=== PATIENT | female | born 1950 | race Caucasian/White ===

== ENCOUNTER 2023-02-10 09:53 | Inpatient (IN) | payer MEDICARE ==
[~2023-02-10] VITALS: Ht 172.7 cm; Wt 62.1 kg
[2023-02-10 10:07] VITALS: BP 100/56
[2023-02-10 11:02] LABS: BASO % 0.1 % (0.0-1.0); EOS # 0.1 10*3/uL (0.0-0.4); EOS % 0.4 % (1.0-4.0); HEMATOCRIT 31.8 % (37.0-47.0); LYMPH # 0.8 10*3/uL (1.3-4.4); LYMPH % 5.5 % (27.0-41.0); MEAN CELL VOLUME 81.3 fl (81.0-99.0); MEAN CORPUSCULAR HGB CONC 29.6 g/dl (33.0-37.0); MEAN PLATELET VOLUME 8.7 fl (9.6-12.3); MONO # 0.8 10*3/uL (0.1-1.0); MONO % 5.1 % (3.0-9.0); NEUT # 13.6 10*3/uL (2.3-7.9); NEUT % 88.2 % (47.0-73.0); PLATELET COUNT AUTOMATED 357 10*3/uL (130-400); RED BLOOD COUNT 3.91 10*6/uL (4.10-5.10); RED CELL DISTRI WIDTH 17.6 % (0-14.5); WHITE BLOOD COUNT 15.4 10*3/uL (4.8-10.8)
[2023-02-10] MEDS ORDERED: VENLAFAXINE PO (11:05)
[2023-02-10] MEDS ORDERED: ZINC50 M4 PO (11:05)
[2023-02-10] MEDS ORDERED: NAC600 M1 PO (11:07)
[2023-02-10] MEDS ORDERED: [UNRECOGNIZED DRUG - OTHER] INH (11:09)
[2023-02-10 11:11] VITALS: BP 105/55
[2023-02-10] MEDS ORDERED: ELIQUIS5 M1 PO (11:11)
[2023-02-10] MEDS ORDERED: MUCINEX ER600 MG PO (11:13)
[2023-02-10] MEDS ORDERED: IPRATROPIU0.2 MG/1 M INH (11:16)
[2023-02-10] MEDS ORDERED: Ipratropium Brom3 ML INH (11:17)
[2023-02-10 11:20] LABS: ALKALINE PHOSPHATASE 48 U/L (46-116); BUN 21 mg/dl (9-23); CHLORIDE 105 mmol/L (98-107); LIPASE 30 U/L (12-53); POTASSIUM 3.7 mmol/L (3.4-5.1); SGPT/ALT 29 U/L (5-49); TOTAL PROTEIN 5.8 gm/dL (6.0-8.0)
[2023-02-10] MEDS ORDERED: XANAX0.25 MG PO (11:20)
[2023-02-10] MEDS ORDERED: FUROSEMIDE40 MG PO (11:25)
[2023-02-10] MEDS ORDERED: ONDANSETRON HYDR4 MG PO (11:26)
[2023-02-10] MEDS ORDERED: POTASSIUM CHLO10 ME4 PO (11:29)
[2023-02-10] MEDS ORDERED: PREDNISONE20 M1 PO (11:30)
[2023-02-10] MEDS ORDERED: PROVENTIL HFA6.7 GM INH (11:35)
[2023-02-10] MEDS ORDERED: DULCOLAX STOOL100 M1 PO (11:36)
[2023-02-10 12:58] VITALS: BP 110/43
[2023-02-10] MEDS ORDERED: DILTIAZEM 24HR120 M1 PO (13:23)
[2023-02-10] MEDS ORDERED: PANTOPRAZOLE SO40 MG PO (13:24)
[2023-02-10] MEDS ORDERED: PREDNISONE10 MG PO (13:27)
[2023-02-10] MEDS ORDERED: DAILY VITAMIN1 EAC3 PO (13:28)
[2023-02-10 17:25] VITALS: BP 126/56
[2023-02-10 19:02] VITALS: BP 113/43
[2023-02-10 22:00] VITALS: BP 153/77
[2023-02-11 06:17] LABS: HEMATOCRIT 28.8 % (37.0-47.0); LYMPH # 0.6 10*3/uL (1.3-4.4); LYMPH % 8.8 % (27.0-41.0); MEAN CELL VOLUME 80.7 fl (81.0-99.0); MEAN CORPUSCULAR HGB 24.1 pg (27.0-31.0); MEAN CORPUSCULAR HGB CONC 29.9 g/dl (33.0-37.0); MEAN PLATELET VOLUME 9.2 fl (9.6-12.3); MONO # 0.4 10*3/uL (0.1-1.0); MONO % 6.7 % (3.0-9.0); NEUT # 5.6 10*3/uL (2.3-7.9); PLATELET COUNT AUTOMATED 324 10*3/uL (130-400); RED BLOOD COUNT 3.57 10*6/uL (4.10-5.10); RED CELL DISTRI WIDTH 17.2 % (0-14.5); WHITE BLOOD COUNT 6.6 10*3/uL (4.8-10.8)
[2023-02-11 06:22] LABS: ALKALINE PHOSPHATASE 44 U/L (46-116); BUN 20 mg/dl (9-23); CHLORIDE 104 mmol/L (98-107); CHOLESTEROL 182 mg/dL (<200); FREE T4 1.08 ng/dl (0.89-1.76); LDL CHOLESTEROL 79 mg/dL (9-159); POTASSIUM 4.2 mmol/L (3.4-5.1); SGPT/ALT 31 U/L (5-49); TOTAL PROTEIN 5.7 gm/dL (6.0-8.0); TRIGLYCERIDES 65 mg/dl (<150)
[2023-02-11 08:00] VITALS: BP 158/73
[2023-02-11 08:53] LABS: VITAMIN D, 25-HYDROXY 45.4 ng/mL (30-100)
[2023-02-11 12:00] VITALS: BP 137/64
[2023-02-11 16:00] VITALS: BP 136/67
[2023-02-11 20:00] VITALS: BP 139/73
[2023-02-12] VITALS (7 sets, daily range): BP systolic 117–158; BP diastolic 60–92
[2023-02-12 06:51] LABS: BASO % 0.1 % (0.0-1.0); HEMATOCRIT 27.6 % (37.0-47.0); LYMPH # 0.7 10*3/uL (1.3-4.4); LYMPH % 7.5 % (27.0-41.0); MEAN CELL VOLUME 81.7 fl (81.0-99.0); MEAN CORPUSCULAR HGB 23.7 pg (27.0-31.0); MEAN PLATELET VOLUME 9.4 fl (9.6-12.3); MONO # 0.5 10*3/uL (0.1-1.0); MONO % 5.2 % (3.0-9.0); NEUT # 7.6 10*3/uL (2.3-7.9); NEUT % 86.6 % (47.0-73.0); PLATELET COUNT AUTOMATED 346 10*3/uL (130-400); RED BLOOD COUNT 3.38 10*6/uL (4.10-5.10); RED CELL DISTRI WIDTH 17.3 % (0-14.5); WHITE BLOOD COUNT 8.8 10*3/uL (4.8-10.8)
[2023-02-12 07:08] LABS: BUN 23 mg/dl (9-23); CHLORIDE 106 mmol/L (98-107); POTASSIUM 4.1 mmol/L (3.4-5.1)
[2023-02-13] VITALS: BP 152/74
[2023-02-13 06:59] LABS: HEMATOCRIT 28.9 % (37.0-47.0); LYMPH # 0.5 10*3/uL (1.3-4.4); MEAN CORPUSCULAR HGB 23.6 pg (27.0-31.0); MEAN CORPUSCULAR HGB CONC 28.4 g/dl (33.0-37.0); MEAN PLATELET VOLUME 9.2 fl (9.6-12.3); MONO # 0.3 10*3/uL (0.1-1.0); MONO % 3.9 % (3.0-9.0); NEUT # 7.7 10*3/uL (2.3-7.9); NEUT % 89.6 % (47.0-73.0); PLATELET COUNT AUTOMATED 334 10*3/uL (130-400); RED BLOOD COUNT 3.48 10*6/uL (4.10-5.10); RED CELL DISTRI WIDTH 17.3 % (0-14.5); WHITE BLOOD COUNT 8.6 10*3/uL (4.8-10.8)
[2023-02-13 07:08] LABS: CHLORIDE 105 mmol/L (98-107); POTASSIUM 3.9 mmol/L (3.4-5.1)
[2023-02-13 07:09] LABS: BUN 13 mg/dl (9-23)
[2023-02-13 08:00] VITALS: BP 139/68
[2023-02-13 12:00] VITALS: BP 149/77
[2023-02-13 15:35] VITALS: BP 132/77
[2023-02-13 20:00] VITALS: BP 122/76; BP 151/60
[2023-02-14] VITALS: BP 134/65
[2023-02-14 06:33] LABS: EOS # 0.1 10*3/uL (0.0-0.4); HEMATOCRIT 29.4 % (37.0-47.0); LYMPH # 1.1 10*3/uL (1.3-4.4); LYMPH % 13.7 % (27.0-41.0); MEAN CELL VOLUME 82.1 fl (81.0-99.0); MEAN CORPUSCULAR HGB 23.2 pg (27.0-31.0); MEAN CORPUSCULAR HGB CONC 28.2 g/dl (33.0-37.0); MEAN PLATELET VOLUME 9.2 fl (9.6-12.3); MONO # 0.7 10*3/uL (0.1-1.0); MONO % 8.1 % (3.0-9.0); NEUT # 6.3 10*3/uL (2.3-7.9); NEUT % 76.8 % (47.0-73.0); PLATELET COUNT AUTOMATED 312 10*3/uL (130-400); RED BLOOD COUNT 3.58 10*6/uL (4.10-5.10); RED CELL DISTRI WIDTH 17.2 % (0-14.5); WHITE BLOOD COUNT 8.2 10*3/uL (4.8-10.8)
[2023-02-14 08:00] VITALS: BP 124/70; BP 126/84
[2023-02-14 12:00] VITALS: BP 132/63
[2023-02-14 15:47] VITALS: BP 108/45
[2023-02-14 20:00] VITALS: BP 133/67
[2023-02-15] VITALS: BP 132/78; BP 178/84
[2023-02-15 07:06] LABS: BASO % 0.1 % (0.0-1.0); EOS # 0.1 10*3/uL (0.0-0.4); EOS % 0.6 % (1.0-4.0); HEMATOCRIT 26.6 % (37.0-47.0); LYMPH % 11.9 % (27.0-41.0); MEAN CELL VOLUME 82.1 fl (81.0-99.0); MEAN CORPUSCULAR HGB 23.5 pg (27.0-31.0); MEAN CORPUSCULAR HGB CONC 28.6 g/dl (33.0-37.0); MEAN PLATELET VOLUME 9.1 fl (9.6-12.3); MONO # 0.6 10*3/uL (0.1-1.0); NEUT # 6.8 10*3/uL (2.3-7.9); NEUT % 79.8 % (47.0-73.0); PLATELET COUNT AUTOMATED 291 10*3/uL (130-400); RED BLOOD COUNT 3.24 10*6/uL (4.10-5.10); WHITE BLOOD COUNT 8.5 10*3/uL (4.8-10.8)
[2023-02-15 08:00] VITALS: BP 125/78
[2023-02-15 11:23] VITALS: BP 124/65
[2023-02-15] MEDS ORDERED: DILTIAZEM 24HR180 MG PO (13:55)
[2023-02-15] MEDS ORDERED: ALPRAZOLAM0.5 M3 PO (13:55)
[2023-02-15] MEDS ORDERED: PREDNISONE10 MG PO (13:55)
[2023-02-15] MEDS ORDERED: DIGOX125 MCG PO (13:55)
[2023-02-15 15:28] VITALS: BP 123/42
== END 2023-02-15 19:20 | DRG 871 ==
LOC: ED 09:53 → EDHOLD 11:56 → 4E 11:56 → EDHOLD 12:45 → 4E 21:15
PROVIDERS: Emergency Medicine; Family Medicine; Internal Medicine; Student in an Organized Health Care Education/Training Program; ADMIT Student in an Organized Health Care Education/Training Program; ATTEND Student in an Organized Health Care Education/Training Program
PROC: XW033E5 Introduction of Remdesivir Anti-infective into Peripheral Vein, Percutaneous Approach, New Technology Group 5 (ICD-10-PCS; principal; 2023-02-11)
DX: A41.9 Sepsis, unspecified organism (principal); I21.A1 Myocardial infarction type 2; J12.82 Pneumonia due to coronavirus disease 2019; U07.1 COVID-19; J96.21 Acute and chronic respiratory failure with hypoxia; J96.22 Acute and chronic respiratory failure with hypercapnia; E44.0 Moderate protein-calorie malnutrition; C34.11 Malignant neoplasm of upper lobe, right bronchus or lung; I50.32 Chronic diastolic (congestive) heart failure; J44.0 Chronic obstructive pulmonary disease with (acute) lower respiratory infection; J44.1 Chronic obstructive pulmonary disease with (acute) exacerbation; R65.20 Severe sepsis without septic shock; D64.9 Anemia, unspecified; R73.9 Hyperglycemia, unspecified; F41.1 Generalized anxiety disorder; J20.9 Acute bronchitis, unspecified; F32.9 Major depressive disorder, single episode, unspecified; I48.91 Unspecified atrial fibrillation; Z79.51 Long term (current) use of inhaled steroids; Z79.899 Other long term (current) drug therapy; Z68.20 Body mass index [BMI] 20.0-20.9, adult

== ENCOUNTER 2023-03-15 08:25 | Inpatient (IN) | payer MEDICARE ==
[~2023-03-15] VITALS: Ht 172.7 cm; Wt 61.5 kg
[2023-03-15] VITALS (14 sets, daily range): BP systolic 96–163; BP diastolic 53–110
[~2023-03-15 08:25] MED LIST: ALPRAZOLAM0.5 M3 PO; DAILY VITAMIN1 EAC3 PO; DIGOX125 MCG PO; DIGOXIN125 MCG PO; DILTIAZEM 24HR120 M1 PO; DILTIAZEM 24HR180 MG PO; DILTIAZEM CD240 MG PO; DULCOLAX STOOL100 M1 PO; ELIQUIS5 M1 PO; FLECAINIDE ACE100 M1 PO; FUROSEMIDE40 MG PO; IPRATROPIU0.2 MG/1 M INH; Ipratropium Brom3 ML INH; MUCINEX ER600 MG PO; NAC600 M1 PO; ONDANSETRON HYDR4 MG PO; PANTOPRAZOLE SO40 MG PO; POTASSIUM CHLO10 ME4 PO; PREDNISONE10 MG PO; PREDNISONE20 M1 PO; PROVENTIL HFA6.7 GM INH; TORSEMIDE20 MG PO; VENLAFAXINE PO; XANAX0.25 MG PO; ZINC50 M4 PO; [UNRECOGNIZED DRUG - OTHER] INH
[2023-03-15 08:40] LABS: ABG BASE EXCESS 0.4 mmol/L (-2.0-2.0); ARTERIAL BLOOD GAS PH 7.394 (7.35-7.45)
[2023-03-15] MEDS ORDERED: SODIUM CHLORIDE 0.9% 1,000 ML IV SCH (08:55)
[2023-03-15 09:10] LABS: BASO % 0.2 % (0.0-1.0); EOS % 0.3 % (1.0-4.0); LYMPH # 0.5 10*3/uL (1.3-4.4); LYMPH % 5.7 % (27.0-41.0); MEAN CELL VOLUME 88.1 fl (81.0-99.0); MEAN CORPUSCULAR HGB 23.9 pg (27.0-31.0); MEAN CORPUSCULAR HGB CONC 27.1 g/dl (33.0-37.0); MEAN PLATELET VOLUME 9.3 fl (9.6-12.3); MONO # 0.6 10*3/uL (0.1-1.0); MONO % 6.7 % (3.0-9.0); NEUT # 8.1 10*3/uL (2.3-7.9); NEUT % 86.2 % (47.0-73.0); PLATELET COUNT AUTOMATED 392 10*3/uL (130-400); RED BLOOD COUNT 3.18 10*6/uL (4.10-5.10); RED CELL DISTRI WIDTH 18.8 % (0-14.5); WHITE BLOOD COUNT 9.4 10*3/uL (4.8-10.8)
[2023-03-15] MEDS ORDERED: AZITHROMYCIN 250 ML IV ONE (09:15)
[2023-03-15 09:20] LABS: ACT PARTIAL THROMBO TIME 34.8 SECONDS (20.0-32.1)
[2023-03-15] MEDS ORDERED: Cefepime Hydrochloride 1 GM in SODIUM CHLORIDE 0.9% 50 ML IV ONE (09:25)
[2023-03-15 09:31] LABS: ALKALINE PHOSPHATASE 65 U/L (46-116); BUN 13 mg/dl (9-23); CHLORIDE 109 mmol/L (98-107); LIPASE 23 U/L (12-53); POTASSIUM 4.3 mmol/L (3.4-5.1); SGPT/ALT 36 U/L (5-49); TOTAL PROTEIN 6.1 gm/dL (6.0-8.0)
[2023-03-15] MEDS ORDERED: ACETAMINOPHEN 325 MG TAB PO PRN (09:50)
[2023-03-15] MEDS ORDERED: BISACODYL 5 MG TAB PO PRN (09:50)
[2023-03-15] MEDS ORDERED: Magnesium Hydroxide 30 ML UDC PO PRN (09:50)
[2023-03-15] MEDS ORDERED: ASPIRIN, CHEWABLE 81 MG TAB PO ONE (10:00)
[2023-03-15] MEDS ORDERED: ATORVASTATIN CALCIUM 40 MG TABLET PO SCH (10:00)
[2023-03-15] MEDS ORDERED: ASPIRIN, CHEWABLE 81 MG TAB PO SCH (10:00)
[2023-03-15] MEDS ORDERED: methylPREDNISolone sod succ 125 MG VIAL IV ONE (10:05)
[2023-03-15] MEDS ORDERED: Levalbuterol Hydrochloride 1.25 MG VIAL NEB SCH (10:08)
[2023-03-15] MEDS ORDERED: POTASSIUM CHLO20 ME4 PO (10:17)
[2023-03-15] MEDS ORDERED: FLECAINIDE ACETATE 100 MG TAB PO SCH (11:15)
[2023-03-15] MEDS ORDERED: DILTIAZEM CD 240 MG CAP PO SCH (11:15)
[2023-03-15] MEDS ORDERED: MIRALAX17 GM PO (11:43)
[2023-03-15] MEDS ORDERED: DEXMEDETOMIDINE IN 0.9 % NACL 100 ML IV SCH (12:35)
[2023-03-15] MEDS ORDERED: DEXMEDETOMIDINE IN 0.9 % NACL 100 ML IV ONE (12:52)
[2023-03-15 12:57] LABS: ABG BASE EXCESS -1.1 mmol/L (-2.0-2.0); ARTERIAL BLOOD GAS PH 7.372 (7.35-7.45)
[2023-03-15] MEDS ORDERED: Cefepime Hydrochloride 2 GM in SODIUM CHLORIDE 0.9% 50 ML IV SCH (14:00)
[2023-03-15] MEDS ORDERED: DIGOXIN 125 MCG TAB PO SCH (14:00)
[2023-03-15] MEDS ORDERED: SODIUM CHLORIDE 0.9% 250 ML IV SCH (15:45)
[2023-03-15] MEDS ORDERED: FUROSEMIDE 40 MG/4 ML VIAL IV ONE (17:00)
[2023-03-15] MEDS ORDERED: FUROSEMIDE 40 MG/4 ML VIAL ONE (17:15)
[2023-03-15] MEDS ORDERED: HEEL PROTECTOR DEVICE ONE (19:58)
[2023-03-15] MEDS ORDERED: FOAM BANDAGE HEEL T ONE (19:58)
[2023-03-15] MEDS ORDERED: FOAM BANDAGE 4X4 T ONE (19:58)
[2023-03-15] MEDS ORDERED: GUAIFENESIN 600 MG TAB ER PO SCH (22:00)
[2023-03-16] VITALS: BP 102/58
[2023-03-16 00:33] LABS: HEMATOCRIT 25.8 % (37.0-47.0); MEAN CELL VOLUME 87.5 fl (81.0-99.0); MEAN CORPUSCULAR HGB 25.8 pg (27.0-31.0); MEAN CORPUSCULAR HGB CONC 29.5 g/dl (33.0-37.0); MEAN PLATELET VOLUME 9.6 fl (9.6-12.3); RED BLOOD COUNT 2.95 10*6/uL (4.10-5.10); WHITE BLOOD COUNT 4.7 10*3/uL (4.8-10.8)
[2023-03-16 00:35] LABS: MANUAL DIFF REFLEX YES; PLATELET COUNT AUTOMATED 270 10*3/uL (130-400)
[2023-03-16 00:47] LABS: PLATELET SUFFICIENCY NORMAL (NORMAL); POLYCHROMASIA SLIGHT; TOTAL CELLS COUNTED 100 #CELLS
[2023-03-16 02:00] VITALS: BP 92/58
[2023-03-16 04:00] VITALS: BP 102/54
[2023-03-16 06:00] VITALS: BP 109/57
[2023-03-16 06:19] LABS: ALKALINE PHOSPHATASE 54 U/L (46-116); BUN 18 mg/dl (9-23); CHLORIDE 110 mmol/L (98-107); FREE T4 0.93 ng/dl (0.89-1.76); HEMATOCRIT 25.4 % (37.0-47.0); LYMPH # 0.3 10*3/uL (1.3-4.4); LYMPH % 6.8 % (27.0-41.0); MEAN CELL VOLUME 87.6 fl (81.0-99.0); MEAN CORPUSCULAR HGB 25.5 pg (27.0-31.0); MEAN CORPUSCULAR HGB CONC 29.1 g/dl (33.0-37.0); MEAN PLATELET VOLUME 9.6 fl (9.6-12.3); MONO # 0.2 10*3/uL (0.1-1.0); MONO % 4.2 % (3.0-9.0); NEUT # 3.4 10*3/uL (2.3-7.9); NEUT % 88.2 % (47.0-73.0); PLATELET COUNT AUTOMATED 277 10*3/uL (130-400); POTASSIUM 4.2 mmol/L (3.4-5.1); RED CELL DISTRI WIDTH 18.1 % (0-14.5); SGPT/ALT 26 U/L (5-49); TOTAL PROTEIN 5.1 gm/dL (6.0-8.0); WHITE BLOOD COUNT 3.8 10*3/uL (4.8-10.8)
[2023-03-16] MEDS ORDERED: MAGNESIUM SULFATE 50 ML IV ONE (07:45)
[2023-03-16] MEDS ORDERED: Pantoprazole Sodium 40 MG VIAL IV SCH (07:45)
[2023-03-16 08:00] VITALS: BP 112/60
[2023-03-16] MEDS ORDERED: ALPRAZolam 0.25 MG TAB PO PRN (08:15)
[2023-03-16] MEDS ORDERED: AZITHROMYCIN 250 ML IV SCH (10:00)
[2023-03-16] MEDS ORDERED: methylPREDNISolone sod succ 40 MG VIAL IV SCH (10:00)
[2023-03-16] MEDS ORDERED: FUROSEMIDE 40 MG/4 ML VIAL IV ONE (10:15)
[2023-03-16] MEDS ORDERED: Menthol/Zinc Oxide 4 GM THIN T PRN (11:50)
[2023-03-16] MEDS ORDERED: MORPHINE Sulfate 2 MG/ML SYR IV PRN (12:05)
[2023-03-16] MEDS ORDERED: MORPHINE Sulfate 2 MG/ML SYR ONE (12:20)
[2023-03-16] MEDS ORDERED: Menthol/Zinc Oxide 4 GM THIN T SCH (18:00)
[2023-03-16 20:00] VITALS: BP 140/41
== END 2023-03-16 21:25 | disposition hospice, inpatient (51) | DRG 871 ==
LOC: ED 08:25 → EDHOLD 09:37 → ICCU 09:37 → EDHOLD 09:38 → ICCU 09:52
PROVIDERS: Emergency Medicine; Family Medicine; Internal Medicine Critical Care Medicine; Student in an Organized Health Care Education/Training Program; ADMIT Internal Medicine; ATTEND Internal Medicine
PROC: 02HV33Z Insertion of Infusion Device into Superior Vena Cava, Percutaneous Approach (ICD-10-PCS; principal; 2023-03-15)
PROC: B548ZZA Ultrasonography of Superior Vena Cava, Guidance (ICD-10-PCS; 2023-03-15)
PROC: 5A09357 Assistance with Respiratory Ventilation, Less than 24 Consecutive Hours, Continuous Positive Airway Pressure (ICD-10-PCS; 2023-03-15)
PROC: 5A0935A Assistance with Respiratory Ventilation, Less than 24 Consecutive Hours, High Flow/Velocity Cannula (ICD-10-PCS; 2023-03-16)
DX: A41.9 Sepsis, unspecified organism (principal); I21.4 Non-ST elevation (NSTEMI) myocardial infarction; J96.21 Acute and chronic respiratory failure with hypoxia; J18.9 Pneumonia, unspecified organism; I50.33 Acute on chronic diastolic (congestive) heart failure; J44.1 Chronic obstructive pulmonary disease with (acute) exacerbation; J44.0 Chronic obstructive pulmonary disease with (acute) lower respiratory infection; E44.0 Moderate protein-calorie malnutrition; I48.20 Chronic atrial fibrillation, unspecified; C34.90 Malignant neoplasm of unspecified part of unspecified bronchus or lung; I48.92 Unspecified atrial flutter; Z66 Do not resuscitate; I48.0 Paroxysmal atrial fibrillation; L89.011 Pressure ulcer of right elbow, stage 1; L89.320 Pressure ulcer of left buttock, unstageable; I08.0 Rheumatic disorders of both mitral and aortic valves; R65.20 Severe sepsis without septic shock; D64.9 Anemia, unspecified; E87.8 Other disorders of electrolyte and fluid balance, not elsewhere classified; F41.1 Generalized anxiety disorder; F32.A Depression, unspecified; Z51.5 Encounter for palliative care; Z88.0 Allergy status to penicillin; Z88.8 Allergy status to other drugs, medicaments and biological substances; Z68.20 Body mass index [BMI] 20.0-20.9, adult

== ENCOUNTER 2023-03-16 21:31 | Inpatient (IN) | payer OTHER, MEDICARE ==
[~2023-03-16] VITALS: Ht 172.7 cm; Wt 61.5 kg
[~2023-03-16 21:31] MED LIST changes: +MIRALAX17 GM PO; +POTASSIUM CHLO20 ME4 PO
[2023-03-16] MEDS ORDERED: DIAZEPAM 10 MG/2 ML SYR IV PRN (21:50)
[2023-03-16] MEDS ORDERED: MORPHINE Sulfate 50 MG in SODIUM CHLORIDE 0.9% 45 ML IV SCH (21:50)
[2023-03-16] MEDS ORDERED: ATROPINE SULFATE 1% 2 ML BOTTLE SL PRN (21:50)
[2023-03-16] MEDS ORDERED: Albuterol Sulf/Ipratropium 3 ML VIAL NEB PRN (21:50)
[2023-03-16 21:52] VITALS: BP 140/50
[2023-03-16] MEDS ORDERED: MORPHINE Sulfate 5 MG IV PRN (21:55)
[2023-03-16] MEDS ORDERED: MORPHINE Sulfate 2 MG/ML SYR IV PRN (22:00)
[2023-03-16] MEDS ORDERED: SODIUM CHLORIDE 0.9% 500 ML IV SCH (22:40)
[2023-03-17] VITALS: BP 137/73
[2023-03-17 08:00] VITALS: BP 154/78
[2023-03-17] MEDS ORDERED: Cefepime Hydrochloride 2 GM in SODIUM CHLORIDE 0.9% 50 ML IV SCH (10:00)
[2023-03-17] MEDS ORDERED: AZITHROMYCIN 250 ML IV SCH (10:00)
[2023-03-17] MEDS ORDERED: Vancomycin Hydrochloride 1,000 MG in SODIUM CHLORIDE 0.9% 250 ML IV SCH (12:00)
[2023-03-17] MEDS ORDERED: GUAIFENESIN 600 MG TAB ER PO SCH ×2 (14:45→22:00)
[2023-03-17 16:00] VITALS: BP 158/92
[2023-03-17] MEDS ORDERED: Ondansetron Hydrochloride 4 MG TAB PO SCH (17:00)
[2023-03-17] MEDS ORDERED: Ondansetron Hydrochloride 4 MG/2 ML VIAL IV PRN (17:25)
[2023-03-17] MEDS ORDERED: Menthol/Zinc Oxide 4 GM THIN T SCH (18:00)
[2023-03-17 20:00] VITALS: BP 139/75
[2023-03-18] VITALS: BP 122/77
[2023-03-18 06:51] VITALS: BP 139/77
[2023-03-18 08:00] VITALS: BP 122/74
[2023-03-18 12:00] VITALS: BP 96/58
[2023-03-18 16:00] VITALS: BP 106/77
[2023-03-18 20:00] VITALS: BP 72/36
[2023-03-19 08:00] VITALS: BP 129/57
[2023-03-19] MEDS ORDERED: ATROPINE SULFATE 1% 2 ML BOTTLE SL PRN (11:15)
[2023-03-19 12:00] VITALS: BP 129/63
[2023-03-19 16:00] VITALS: BP 131/50
[2023-03-19] MEDS ORDERED: MORPHINE Sulfate 100 MG in SODIUM CHLORIDE 0.9% 90 ML IV SCH (17:30)
[2023-03-19 20:00] VITALS: BP 123/46
[2023-03-20] VITALS: BP 114/41
[2023-03-20 07:45] VITALS: BP 98/30
[2023-03-20 12:00] VITALS: BP 111/44
[2023-03-20] MEDS ORDERED: MORPHINE Sulfate 100 MG in SODIUM CHLORIDE 0.9% 90 ML IV SCH (14:30)
[2023-03-20 16:00] VITALS: BP 118/47
[2023-03-20 20:00] VITALS: BP 105/51
[2023-03-21] VITALS: BP 81/38
== END 2023-03-21 04:25 | DRG 871 ==
LOC: 5E 21:31 → ICCU 21:31 → 5E 03-17 23:17
PROVIDERS: ADMIT Internal Medicine; ATTEND Internal Medicine
PROC: 5A0955A Assistance with Respiratory Ventilation, Greater than 96 Consecutive Hours, High Flow/Velocity Cannula (ICD-10-PCS; principal; 2023-03-16)
DX: A41.9 Sepsis, unspecified organism (principal); I21.4 Non-ST elevation (NSTEMI) myocardial infarction; J18.9 Pneumonia, unspecified organism; J96.21 Acute and chronic respiratory failure with hypoxia; C34.11 Malignant neoplasm of upper lobe, right bronchus or lung; J44.1 Chronic obstructive pulmonary disease with (acute) exacerbation; E44.0 Moderate protein-calorie malnutrition; Z51.5 Encounter for palliative care; R65.20 Severe sepsis without septic shock; R91.8 Other nonspecific abnormal finding of lung field; D64.9 Anemia, unspecified; E87.8 Other disorders of electrolyte and fluid balance, not elsewhere classified; R73.9 Hyperglycemia, unspecified; Z66 Do not resuscitate; Z68.20 Body mass index [BMI] 20.0-20.9, adult